=== PATIENT | female | born 1960 | race Caucasian/White ===

== ENCOUNTER → 2016-09-08 | Outpatient (CLI) | payer OTHER ==
[~2016-09-08] MED LIST: CALCTAB5 PO; CETI10TA84 PO; DICY10CA55 PO; METO-157 PO; MISCTAB78 PO; OMEG10007 PO; VITA400C15 PO; [UNRECOGNIZED DRUG - OTHER] PO
== END | disposition home or self-care (01) ==
LOC: C.LABSPEC 16:50
PROVIDERS: ATTEND Obstetrics & Gynecology
DX: N95.2 Postmenopausal atrophic vaginitis (principal)